=== PATIENT | male | born 1990 | race Caucasian/White ===

== ENCOUNTER 2017-03-15 17:30 | Emergency (ER) | payer BC ==
[2017-03-15 19:26] LABS: HEMOGLOBIN 15.1 gm/dl (14.0-17.5); RED BLOOD COUNT 5.28 M/UL (4.20-5.50); WHITE BLOOD COUNT 15.5 K/UL (4.5-11.0)
[2017-03-15 19:38] LABS: BUN/CREATININE RATIO 11 (0-10)
== END 2017-03-15 20:25 | disposition home or self-care (01) ==
LOC: ER1 17:30
PROVIDERS: Preventive Medicine Occupational Medicine
DX: N20.0 Calculus of kidney (principal); F17.210 Nicotine dependence, cigarettes, uncomplicated; Z87.442 Personal history of urinary calculi
CPT/HCPCS: 36415; 80048; 81001; 85025; 96361; 96374; 96375; 99284; J2405

== ENCOUNTER → 2020-12-07 | Outpatient (CLI) | payer BC, OTHER | LOC: SLEEP 14:52 | DX: R29.818 Other symptoms and signs involving the nervous system (principal); E66.9 Obesity, unspecified | CPT/HCPCS: 95810 ==